=== PATIENT | female | born 1980 | race American Indian/Alaskan Native ===

== ENCOUNTER 2019-06-17 10:42 | Emergency (ER) | payer OTHER ==
[2019-06-17] MEDS ORDERED: ACETAMINOPHEN 325 MG TAB PO ONE (11:50)
--- NOTE | 2019-06-17 11:50 | Emergency Department Report ---
ED Fever HPI - General Chief Complaint: Fever Stated Complaint: SEND BY DR. STEPHENS Time Seen by Provider: 06/17/19 11:46 Source: patient, family - History of Present Illness Initial Comments: This is a 38-year-old female sent from her physician's office for fever. Patient reported fever of 101.5 and in triage her temperature was 101.9. She reports that she is having lower back pain and lower abdominal pain 4 out of 10. Denies any nausea or vomiting. Patient reports that she did not know she had fever until she went to the doctor's office she was just having back pain and abdominal pain with some nausea on and off. She said she started with urinary frequency and thought she just had a urinary tract infection but then she started having back pain and abdominal pain and not feeling well. Denies any cough, shortness of breath, short sore throat. Pain is sharp, constant. Denies taking any medication prior to coming to the emergency room. Timing/Duration: constant, getting worse Fever Severity/Quality: greater than 100.5 F Fever Therapy ASSISTANT TERMINAL MANAGER: none Associated Symptoms: abdominal pain, other (Back pain). denies: chest pain, confusion, cough, diaphoresis, headache, muscle aches, nausea/vomiting, rash, shortness of breath, sore throat, stiff neck, syncope, weakness ED Review of Systems ROS: Stated complaint: SEND BY DR. STEPHENS Other details as noted in HPI Constitutional: chills, fever, weakness Eyes: denies: eye pain, eye discharge, vision change ENT: denies: ear pain, throat pain, dental pain, congestion Respiratory: denies: cough, shortness of breath, SOB with exertion, SOB at rest, stridor, wheezing Cardiovascular: denies: chest pain, palpitations, dyspnea on exertion, orthopnea, edema, syncope Endocrine: denies: increased urine, unexplained weight gain, unexplained weight loss Gastrointestinal: abdominal pain, nausea. denies: vomiting, diarrhea, constipation, hematemesis, melena Genitourinary: frequency. denies: dysuria, hematuria, discharge, abnormal menses, dyspareunia Musculoskeletal: back pain. denies: joint swelling, arthralgia, myalgia Neurological: denies: headache, numbness, paresthesias, abnormal gait, vertigo ED Past Medical Hx - Past Medical History Previous Medical History?: No - Surgical History Hx Cholecystectomy: Yes Additional Surgical History: 3 C-SECTIONS - Family History Family history: no significant - Social History Smoking Status: Never Smoker Substance Use Type: None - Medications Home Medications: Home Medications Medication Instructions Recorded Confirmed Last Taken Type Acetaminophen [8Hr Muscle 650 mg PO Q6H PRN #12 tab 06/17/19 Unknown Rx Aches-Pain] Ondansetron [Zofran ODT TAB] 8 mg PO Q8HR PRN #12 tab.rapdis 06/17/19 Unknown Rx Sulfamethoxazole/Trimethoprim 1 each PO BID 7 Days #14 tablet 06/17/19 Unknown Rx [Bactrim DS TAB] ED Physical Exam - General Limitations: No Limitations General appearance: alert, in no apparent distress - Head Head exam: Present: atraumatic, normocephalic, normal inspection - Eye Eye exam: Present: normal appearance, PERRL, EOMI Pupils: Present: normal accommodation - ENT ENT exam: Present: normal exam, normal orophraynx, mucous membranes moist, TM's normal bilaterally, normal external ear exam - Neck Neck exam: Present: normal inspection, full ROM. Absent: tenderness, lymphadenopathy - Respiratory Respiratory exam: Present: normal lung sounds bilaterally. Absent: respiratory distress - Cardiovascular Cardiovascular Exam: Present: tachycardia, normal heart sounds - GI/Abdominal GI/Abdominal exam: Present: soft, normal bowel sounds. Absent: distended, tenderness, guarding, rebound, rigid, diminished bowel sounds, hyperactive bowel sounds, organomegaly, mass, pulsatile mass, hernia - Extremities Exam Extremities exam: Present: normal inspection, full ROM, normal capillary refill, other (No cce. + 2 pulses in all extremities, no neurovascular compromise). Absent: tenderness, pedal edema, joint swelling, calf tenderness - Back Exam Back exam: Present: normal inspection, full ROM, CVA tenderness (R), CVA tend erness (L). Absent: tenderness, muscle spasm, paraspinal tenderness, vertebral tenderness, rash noted - Neurological Exam Neurological exam: Present: alert, oriented X3, normal gait - Psychiatric Psychiatric exam: Present: normal affect, normal mood - Skin Skin exam: Present: warm, dry, intact, normal color. Absent: rash ED Course Vital Signs 06/17/19 06/17/19 06/17/19 10:47 11:59 13:23 Temperature 101.9 F H Pulse Rate 122 H 86 Respiratory 18 18 100 H Rate Blood Pressure 184/84 124/67 [Left] O2 Sat by Pulse 99 Oximetry 06/17/19 14:06 Temperature 98.5 F Pulse Rate Respiratory Rate Blood Pressure [Left] O2 Sat by Pulse Oximetry - Reevaluation(s) Reevaluation #1: 06/17/19 12:42 Patient stable at present she is currently having no pain. IV fluid infusing. Urinalysis shows positive bacterial infection. Will recheck vital signs Reevaluation #2: 06/17/19 14:26 Patient stable. She is in no acute distress. Vital signs stable she is afebrile and pain is controlled. Tolerating p.o. fluids. ED Medical Decision Making - Lab Data Result diagrams: 06/17/19 12:15 Lab Results 06/17/19 06/17/19 Range/Units 12:03 12:15 Sodium 134 L (137-145) mmol/L Potassium 3.9 (3.6-5.0) mmol/L Chloride 96.7 L (98-107) mmol/L Carbon Dioxide 18 L (22-30) mmol/L Anion Gap 23 mmol/L BUN 9 (7-17) mg/dL Creatinine 0.8 (0.7-1.2) mg/dL Estimated GFR > 60 ml/min BUN/Creatinine Ratio 11 % Glucose 146 H (65-100) mg/dL Calcium 9.9 (8.4-10.2) mg/dL Total Bilirubin 0.70 (0.1-1.2) mg/dL AST 39 (5-40) units/L ALT 25 (7-56) units/L Alkaline Phosphatase 65 (35-129) units/L Total Protein 8.1 (6.3-8.2) g/dL Albumin 3.4 L (3.9-5) g/dL Albumin/Globulin Ratio 0.7 % Urine Color Yellow (Yellow) Urine Turbidity Slightly-cloudy (Clear) Urine pH 6.0 (5.0-7.0) Ur Specific [place] 1.017 (1.003-1.030) Urine Protein 100 mg/dl (Negative) mg/dL Urine Glucose (UA) Neg (Negative) mg/dL Urine Ketones Neg (Negative) mg/dL Urine Blood Lg (Negative) Urine Nitrite Neg (Negative) Urine Bilirubin Neg (Negative) Urine Urobilinogen < 2.0 (<2.0) mg/dL Ur Leukocyte Esterase Mod (Negative) Urine WBC (Auto) 65.0 H (0.0-6.0) /HPF Urine RBC (Auto) 115.0 (0.0-6.0) /HPF U Epithel Cells (Auto) 3.0 (0-13.0) /HPF Urine Bacteria (Auto) 4+ (Negative) /HPF Urine Mucus 2+ /HPF Urine HCG, Qual Negative (Negative) Urine culture pending - Radiology Data Radiology results: report reviewed X-ray AP and lateral dictated by radiologist and report reviewed by myself. No acute findings Findings [facility] [address] [place] [address] XRay Report Signed Patient: MADELIN ELKINS MR#: [id number] : 1980 Acct:[id number] Age/Sex: 38 / F ADM Date: 06/17/19 Loc: ED Attending Dr: Ordering Physician: SVETLANA JONES Date of Service: 06/17/19 Procedure(s): XR chest routine 2V Accession Number(s): [id number] cc: SVETLANA JONES Fluoro Time In Minutes: CHEST 2 VIEWS INDICATION / CLINICAL INFORMATION: Fever, cough. COMPARISON: None available. FINDINGS: SUPPORT DEVICES: None. HEART / MEDIASTINUM: The heart size and pulmonary vasculature are normal. LUNGS / PLEURA: No significant pulmonary or pleural abnormality. No pneumothorax. ADDITIONAL FINDINGS: No significant additional findings. IMPRESSION: No acute findings. There is no evidence of pneumonia. Signer Name: Pete Sofia MD Signed: 06/17/2019 1:00 PM Workstation Name: [id number] Transcribed By: RT Dictated By: Pete Sofia MD Electronically Authenticated By: Pete Sofia MD Signed Date/Time: 06/17/19 1300 DD/ 1259 TD/TT: - Medical Decision Making This is a 38-year-old female here for fever, abdominal pain and lower back pain. Patient found to have mild pyelonephritis with complaint of nausea, fever and bilateral CVA tenderness. Abdominal exam is normal. Patient physical exam otherwise is normal. Chest x-ray shows no acute findings. Patient given 1 L normal saline in emergency room, Tylenol for fever. Her vital signs stable she is afebrile at present. She is able to tolerate p.o. liquids. BMP stable test is negative and urinalysis positive for large amount of bacteria and white blood cell. Laboratory results and x-ray results discussed with patient along with diagnosis and treatment plan and she voiced understanding. Patient given Bactrim DS 1 tablet in emergency room and discharged home and Bactrim DS and to follow-up with primary care in 1 to 2 days or to return to the emergency room if she is worse. She was also given prescription for Tylenol - Differential Diagnosis Viral versus bacterial infection, pyelonephritis, UTI, enteritis Critical care attestation.: If time is entered above; I have spent that time in minutes in the direct care of this critically ill patient, excluding procedure time. ED Disposition Clinical Impression: Pyelonephritis Fever Qualifiers: Fever type: due to other condition Qualified Code(s): R50.81 - Fever presenting with conditions classified elsewhere Disposition: DC-01 TO HOME OR SELFCARE Is pt being admited?: No Does the pt Need Aspirin: No Condition: Stable Instructions: Acute Pyelonephritis (ED), Flank Pain (ED), Fever in Adults (ED) Additional Instructions: Please take Tylenol as prescribed for fever and pain. If your symptoms continues or worsens please return to the emergency room. Increase your fluid intake to at least 2 L of room temperature water daily. Take antibiotic as prescribed Call your primary care doctor to schedule an appointment for follow-up visit in 1 to 2 days See discharge instruction on kidney infection and fever Referrals: [facility] [Other] - 06/18/19 Forms: Work/School Release Form(ED)
[2019-06-17] MEDS ORDERED: SODIUM CHLORIDE 0.9% 1000 ML 1,000 ML IV ONE (11:56)
[2019-06-17] MEDS ORDERED: SODIUM CHLORIDE 0.9% 1000 ML 1,000 ML ONE (11:59)
[2019-06-17 12:34] LABS: Bacteria,Urine 4+ /HPF (Negative); Bilirubin,Urine NEG (Negative); Blood,Urine LG (Negative); Color,Urine Yellow (Yellow); Mucus,Urine 2+ /HPF; Urobilinogen,Urine < 2.0 mg/dL (<2.0)
[2019-06-17 12:36] LABS: HCG Qualitative,Urine Negative (Negative)
--- NOTE | 2019-06-17 13:05 | XRay Report ---
CHEST 2 VIEWS INDICATION / CLINICAL INFORMATION: Fever, cough. COMPARISON: None available. FINDINGS: SUPPORT DEVICES: None. HEART / MEDIASTINUM: The heart size and pulmonary vasculature are normal. LUNGS / PLEURA: No significant pulmonary or pleural abnormality. No pneumothorax. ADDITIONAL FINDINGS: No significant additional findings. IMPRESSION: No acute findings. There is no evidence of pneumonia. Signer Name: Pete Sofia MD Signed: 06/17/2019 1:00 PM Workstation Name: [id number]
[2019-06-17] MEDS ORDERED: SULFAMETHOXAZOLE/TRIMETHOPRIM 800/160MG DS TAB PO ONE (13:19)
[2019-06-17 13:25] VITALS: BP 124/67
[2019-06-17 13:34] LABS: Alanine Aminotransferase 25 units/L (7-56); Albumin 3.4 g/dL (3.9-5); BUN/Creatinine Ratio 11; Blood Urea Nitrogen 9 mg/dL (7-17); Calcium 9.9 mg/dL (8.4-10.2); Hemolysis Index 89
== END 2019-06-17 15:04 | disposition home or self-care (01) ==
LOC: ED 10:42
DX: N12 Tubulo-interstitial nephritis, not specified as acute or chronic (principal)
CPT/HCPCS: 36415; 71046; 80053; 81001; 81025; 87076; 87086; 87186; 99284; J7030